=== PATIENT | female | born 2000 | race Caucasian/White ===

== ENCOUNTER 2021-12-16 17:47 | Emergency (ER) | payer OTHER ==
[~2021-12-16] VITALS: Ht 177.8 cm; Wt 130.2 kg
[2021-12-16] MEDS ORDERED: FIORICET-COD 51 EACH PO (18:56)
== END 2021-12-16 18:59 | disposition home or self-care (01) ==
LOC: FSED 18:00
DX: R51.9 Headache, unspecified (principal)
CPT/HCPCS: 70450; 81003; 99283